=== PATIENT | female | born 1965 | race African-American/Black ===

== ENCOUNTER 2025-08-10 16:54 | Emergency (ER) | payer BC, MEDICAID ==
[~2025-08-10] VITALS: Ht 162.6 cm; Wt 78.0 kg
[2025-08-10 16:59] VITALS: O2SAT 97
[2025-08-10] MEDS ORDERED: LIDOCAINE HCL/EPINEPHRINE 1%-EPI 1:100,000 10ML VIAL INFIL ONE (17:15)
[2025-08-10] MEDS ORDERED: BO1 TP (18:18)
[2025-08-10] MEDS: TETANUS, DIPHTHERIA, PERTUSSIS VAC/PF 0.5ML (>10YR OLD) IM ONE (18:18)
[2025-08-10 18:37] VITALS: BP 151/87; PULSE 86; RESP 18; TEMP 36.7; O2SAT 99
== END 2025-08-10 18:37 | disposition home or self-care (01) ==
LOC: ER 16:54 → EDBD 16:54 → ER 18:37
DX: S61.411A Laceration without foreign body of right hand, initial encounter (principal); I10 Essential (primary) hypertension; X58.XXXA Exposure to other specified factors, initial encounter; Y93.89 Activity, other specified; Y92.89 Other specified places as the place of occurrence of the external cause; Y99.8 Other external cause status
CPT/HCPCS: 12001; 90471; 90715; 99283

== ENCOUNTER 2025-08-21 14:58 | Emergency (ER) | payer BC, MEDICAID ==
[~2025-08-21] VITALS: Ht 165.1 cm; Wt 96.0 kg
[~2025-08-21 14:58] MED LIST: BO1 TP
[2025-08-21 15:16] VITALS: BP 152/74; PULSE 63; RESP 14; TEMP 36.7; O2SAT 99
== END 2025-08-21 15:50 | disposition home or self-care (01) ==
LOC: ER 14:58
DX: S61.411D Laceration without foreign body of right hand, subsequent encounter (principal); I10 Essential (primary) hypertension; Z79.899 Other long term (current) drug therapy; X58.XXXD Exposure to other specified factors, subsequent encounter
CPT/HCPCS: 99282